=== PATIENT | female | born 1955 | race Caucasian/White ===

== ENCOUNTER 2025-05-30 01:01 | Outpatient (CLI) | payer MEDICARE, SELFPAY ==
--- NOTE | 2025-05-30 11:10 | DI.MAMMO_ITS ---
Exam(s) MAMMO SCREENING EXAM: MAMMO SCREENING CLINICAL HISTORY: SCREENING, Z12.31 TECHNIQUE: Mammograms were interpreted according to the usual protocol including computer analysis with CAD system, tomosynthesis and C-view imaging. COMPARISON: 2015 through 2021 FINDINGS: The breasts are composed of scattered fibroglandular densities, Breast Density category B. No suspicious masses or suspicious microcalcifications are seen. No skin thickening or abnormal axillary lymph nodes are seen. There has been no significant change from prior exams. IMPRESSION: BI-RADS Category 1, Negative mammogram Yearly screening mammography is recommended. Breast Density - Category B - There are scattered areas of fibroglandular density. Breast density Category C or D implies that the patient has dense breast tissue. Dense breast tissue can make it harder to find cancer on a mammogram. Dense breast tissue is also associated with an increased risk of breast cancer. This information about the result of the mammogram report was provided to the patient to raise their awareness. Use this report when you speak with the patient about their risks for breast cancer, which includes their family history. At that time, you may recommend additional screening tests (Ultrasound or MRI) as these tests may add significant information. A negative radiographic report should not delay biopsy if a dominant or clinically suspicious mass is present. Up to ten percent of cancers are not identified on mammography. A negative report may reinforce clinical impression. Adenosis and dense breasts may obscure an underlying neoplasm. False positive reports average 6 to 10%. Patient will receive a letter notifying them of these results.
== END 2025-05-30 01:21 ==
PROVIDERS: PCP Legal Medicine; Visit Provider Nurse Practitioner Family
DX: Z12.31 Encounter for screening mammogram for malignant neoplasm of breast (principal); R92.323 Mammographic fibroglandular density, bilateral breasts
CPT/HCPCS: 77063; 77067

== ENCOUNTER → 2025-09-28 00:51 | Outpatient (CLI) | payer MEDICARE, SELFPAY ==
--- NOTE | 2025-09-28 | DI.DEXA_ITS ---
Exam(s) XR DEXA BONE DENSITY W/WO YANDEL EXAM: XR DEXA BONE DENSITY W/WO YANDEL CLINICAL HISTORY: OSTEOPENIA AFTER MENOPAUSE,ASYMPTOMATOC POSTMENOPAUSAL STATE TECHNIQUE: Routine DEXA evaluation of the lumbar spine, hip, or forearm. COMPARISON: Prior DEXA scan June 2020 FINDINGS: Performed on a Bi[employer]xy[employer] unit. Lateral image: No compression fracture evident. Lumbar Spine total T-score: 0.1 which is in normal range. Prior reading in June 2020 was -0.5. Hip total T-score:-1.8 which is osteopenia range. Prior reading in June 2020 was -1.4. Independent reading at the level of the femoral neck yields T-score of -2.4. Which is in osteopenia range. Prior reading in June 2020 was -2.2 Forearm total T-score: -1.7 which is osteopenia range. Prior forearm wrist reading was not performed 2019. IMPRESSION: Bone mineral density measures in the osteopenia range. Fracture risk is moderate. Note: Any spine fracture indicates 5x risk for subsequent spine fracture and 2x risk for subsequent hip fracture. World Health Organization criteria for BMD interpretation classify patients: Normal...... T- Score at or above -1.0 Osteopenic... T- Score between -1.0 and -2.5 Osteoporosis... T-Score at or below -2.5
== END ==
LOC: DI 00:51
PROVIDERS: PCP Legal Medicine; Visit Provider Nurse Practitioner Family
DX: M85.89 Other specified disorders of bone density and structure, multiple sites (principal); Z78.0 Asymptomatic menopausal state
CPT/HCPCS: 77080